=== PATIENT | female | born 1945 | race Caucasian/White ===

== ENCOUNTER 2025-10-10 21:07 | Inpatient (IN) | payer MEDICARE ==
[~2025-10-10] VITALS: Ht 162.6 cm; Wt 111.0 kg
[~2025-10-10 21:07] MED LIST: AMLO-381 PO; CHOL500050 PO; LEVO50TA PO; LOPE2CAP PO; METO-395 PO; SIMV-45 PO; [UNRECOGNIZED DRUG - CODE] PO
--- NOTE | 2025-10-10 21:20 | ELECTROCARDIOGRAPH REPORT ---
[facility] Test Date: 2025-10-10 Test Time: 21:11:35 Pat Name: CATRACHO WHITTAKER Department: EMERGENCY ROOM Room: ORTHO 4022 Gender: F Financial Report Service Sales Agent: MEGHAN : 1945 Requested By: JEAN CARLOS BAZAN Order Number: [id number] Reading MD: Dr. Emerson Ferreira Measurements Intervals [place] Rate: 66 P: 9 IN: 136 QRS: 57 QRSD: 91 T: 0 QT: 435 QTc: 456 Interpretive Statements Sinus rhythm Borderline T abnormalities, inferior leads Baseline wander in lead(s) II,aVR,V1,V5 Electronically Signed On 10-12-2025 21:14:[address] Emerson Ferreira Please click the below link to view image of tracing.
--- NOTE | 2025-10-10 21:46 | Physician Documentation ---
History of Present Illness ~ Chief Complaint: Weakness Stated Complaint: TRANSFER Time Seen by MD: 21:44 OK to notify your PCP?: Yes Source: patient, EMS Mode of Arrival: EMS Exam Limitations: no limitations HPI 80 year old female patient presents to the ED via EMS from [facility] for generalized weakness and ALEXSANDER here for nephrology consult. Patient has left lower extremity cellulitis which she is currently being treated for with no symptomatic improvement. Patient has medical history of atrial fibrillation, arthritis. Negative flu and Covid at [facility]. Medication Reconciliation Allergies: Coded Allergies: No Known Allergies (Unverified , 10/10/25) Scheduled Acetaminophen (Tylenol Extra Strength), 2 TAB PO DAILY, (Reported) Levothyroxine Sodium (Synthroid), 1 TAB PO DAILY, (Reported) Lisinopril (Lisinopril), 2 TAB PO DAILY, (Reported) Metoprolol Succinate (Metoprolol Succinate), 1 TAB PO DAILY, (Reported) Ropinirole Hcl (Ropinirole Hcl), 1 TAB PO HS, (Reported) Simvastatin (Simvastatin), 1 TAB PO HS, (Reported) Spironolactone (Spironolactone), 1 TAB PO DAILY, (Reported) Warfarin Sodium (Warfarin Sodium), 1 TAB PO DAILY, (Reported) Discontinued Medications Amlodipine/Valsartan (Amlodipine-Valsartan 5-320 mg), 1 TAB PO DAILY, (Reported) Discontinued Reason: patient no longer taking Cholecalciferol (Vitamin D3) (Vitamin D3), 1 CAP PO DAILY, (Reported) Discontinued Reason: patient no longer taking Loperamide Hcl (Loperamide), 2 CAP PO HS, (Reported) Discontinued Reason: patient no longer taking Past Medical History Patient History: FH: cancer BROTHER (FROM AG[place]) FH: diabetes mellitus BROTHER FH: myocardial infarction FATHER, Onset:50's - 60 BROTHER Review of Systems All Other Systems at this time: Reviewed and Negative ROS As stated above in the HPI, otherwise all systems are reviewed and negative. Physical Exam Vital Signs: RN Vital Signs have been reviewed: Yes, Temperature: 98.3, Source: Oral, Heart Rate: 66, Respiratory Rate: 16, BP: 97/41, Pulse Oximetry: 94, Weight: 111.000 Oxygen Flow Rate: 0 Pulse Oximetry Reflects: adequate oxygenation Physical Exam General: Patient is awake, alert, oriented x4 in no acute distress. Head: Normocephalic and atraumatic. Eyes: Conjunctival normal. EOMI. PERRL. ENT: Mucous membranes moist. Neck: Supple, trachea is midline. Chest: Clear to auscultation bilaterally without rales, rhonchi, or wheezes. There is no accessory muscle use or retractions. Cardiac: RRR without murmurs, gallops, or rubs. Abd: Soft, nondistended, nontender, with normoactive bowel sounds. No guarding, rebound, or rigidity. Extremities: Cellulitis noted to bilateral lower extremities, left greater than right. Back: No midline spinal or CVA tenderness. Skin: Warm and dry with no significant rash appreciated. Neuro: Cranial nerves II-XII grossly intact. No focal neuro deficits. Progress Progress Note 2152: Paging hospitalist. 2237: Resident hospitalist agrees to admit. Results/Orders Results/Orders Orders - TACO BERNARDO MD Saline Lock (10/10/25 21:18) Culture Blood (10/10/25 21:18) Monitor (10/10/25 21:18) Page Hospitalist (10/10/25 21:52) Fill Out Med Reconciliation (10/10/25 21:52) Completed Orders - TACO BERNARDO MD Cbc/Diff (10/10/25 21:18) CMP (10/10/25 21:18) Procalcitonin (10/10/25 21:18) Lacticsepsis (10/10/25 21:18) Electrocardiogram (10/10/25 21:18) Metoclopramide Inj (Reglan Inj) (10/10/25 21:50) TSH (10/10/25 21:37) Vital Signs 10/10/25 10/10/25 10/10/25 10/10/25 21:27 22:12 22:17 22:47 Temp 98.3 98.3 Pulse 66 63 63 Resp 16 14 17 16 B/P (MAP) 97/41 100/43 (62) 99/49 (66) Pulse Ox 94 97 99 O2 Flow Rate 0 0 Laboratory Tests Test 10/10/25 21:37 White Blood Count 10.9 Red Blood Count 4.29 Hemoglobin 12.3 Hematocrit 37.4 Mean Corpuscular Volume 87.3 Mean Corpuscular Hemoglobin 28.8 Mean Corpuscular Hemoglobin Concent 32.9 L Red Cell Distribution Width 15.1 H Platelet Count 220 Mean Platelet Volume 8.4 Neutrophils (%) (Auto) 81.6 H Lymphocytes (%) (Auto) 9.8 L Monocytes (%) (Auto) 7.2 Eosinophils (%) (Auto) 0.6 Basophils (%) (Auto) 0.8 Neutrophils # (Auto) 8.9 H Lymphocytes # (Auto) 1.1 Monocytes # (Auto) 0.8 Eosinophils # (Auto) 0.1 Basophils # (Auto) 0.1 CBC Comment Sodium Level 136 Potassium Level 4.8 Chloride Level 103 Carbon Dioxide Level 21.1 L Anion Gap 12 Blood Urea Nitrogen 68 H Creatinine 8.27 H Estimated GFR/1.73 m2 5 BUN/Creatinine Ratio 8.2 L Glucose Level 98 Lactic Acid Level 1.0 Calcium Level 8.2 L Total Bilirubin 0.3 Aspartate Amino Transf (AST/SGOT) 17 Alanine Aminotransferase (ALT/SGPT) 11 L Alkaline Phosphatase 36 L Total Protein 5.2 L Albumin 2.4 L Globulin 2.8 Albumin/Globulin Ratio 0.9 L Procalcitonin 0.08 Thyroid Stimulating Hormone (TSH) 5.11 H Chemistry Comments Microbiology Date/Time Source Procedure Growth Status 10/10/25 21:45 Blood Arm Left Blood Culture - Preliminary NEGATIVE (LESS THAN 24 HOURS) Resulted Medical Decision Making Additional information obtaine: old records Findings Patient presents to the emergency room for evaluation of acute kidney injury. Patient transferred for nephrology consultation. Patient noted to be hypotensive with cellulitis however I believe that the hypotension is more of a function of her acute kidney injury while taking blood pressure medicines and not a function of severe sepsis. Patient does have cellulitis however that has mild. She is well-appearing. I do not feel she requires ICU admission. Differential Dx:Considerations: Include: anemia, CVA, dehydration, dysrhythmia, electrolyte imbalance, encephalopathy, Guillain-[place], hypoglycemia, hypotension, hypovolemia, labyrinthitis, Meniere's disease, myasathenia gravis, myocardial infarction, pulmonary embolus, renal failure, respiratory failure, TIA, VBI, vertigo central, vertigo peripheral, vestibular neuronitis, other Departure Disposition: 09 ADMITTED INPATIENT Admitted to Inpatient Unit: yes, to hospitalist Impression: Primary Impression: Acute kidney injury Condition: Guarded Referrals: NO PRIMARY CARE PROVIDER (PCP) Signature Scribe Signature: Scribed for Taco Bernardo MD by Dez Leonard . 10/10/25 23:43 Attestation: The note accurately reflects work and decisions made by me.Taco Bernardo MD 10/11/25 02:36 TACO BERNARDO MD Oct 10, 2025 21:46 DEZ GOMEZ Oct 10, 2025 23:39
[2025-10-10] MEDS ORDERED: metoclopramide 5 mg/ml inj IV ONE (21:50)
[2025-10-10 22:07] LABS: MEAN PLATELET VOLUME 8.4 FL (7.4-10.4); RED CELL DISTRIBUTION WIDTH 15.1 % (11.5-14.5)
[2025-10-10 22:26] LABS: CREATININE 8.27 MG/DL (0.40-0.90); TOTAL CARBON DIOXIDE 21.1 MMOL/L (24-32); eCRCL 5 ML/MIN; eGFR 5 ML/MIN
[2025-10-10] MEDS ORDERED: LISI20TA28 PO (22:26)
[2025-10-10] MEDS ORDERED: ROPI0.5T37 PO (22:26)
[2025-10-10] MEDS ORDERED: SPIR25TA5 PO (22:26)
[2025-10-10] MEDS ORDERED: WARF2.5T82 PO (22:26)
[2025-10-10] MEDS ORDERED: ondansetron/PF 4mg/2ml inj IV PRN (23:20)
[2025-10-10] MEDS ORDERED: potassium Cl 40MEQ/1/2NS 520ml 520 ML IV PRN (23:20)
[2025-10-10] MEDS ORDERED: magnesium sulf-water 4G/100mL 100 ML IV PRN (23:20)
[2025-10-10] MEDS ORDERED: HYDROmorphone/PF 0.2 MG/ML SYRINGE IV PRN (23:20)
[2025-10-10] MEDS ORDERED: magnesium sulf-water 2g/50mL 50 ML IV PRN (23:20)
[2025-10-10] MEDS ORDERED: magnesium Cl slow-release 64mg tablet PO PRN (23:20)
[2025-10-10] MEDS ORDERED: mag hydrox/Alum hydrox/simeth 30ml oral suspension PO PRN (23:20)
[2025-10-10] MEDS ORDERED: magnesium hydroxide 30ml (MOM) UD suspension PO PRN (23:20)
[2025-10-10] MEDS ORDERED: potassium Cl 20 mEq SR tablet PO PRN ×2 (23:20)
[2025-10-10] MEDS ORDERED: ondansetron 4mg rapidly disintigrating tab PO PRN (23:20)
--- NOTE | 2025-10-10 23:43 | HISTORY AND PHYSICAL-Residence ---
History & Physical Providers to Resident Creating Document: NANDO JARRETT, RES ~ History of Present Illness Primary Medical Doctor: Dr. 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 for further evaluation. The patient was initially admitted one week ago for left lower extremity cellulitis and completed a course of trimethoprim-sulfamethoxazole today. A few days ago, she followed up with her primary care physician, where she received a penicillin injection for persistent erythema. Over the past few days, the patient reports generalized weakness, dizziness, fatigue, diffuse lower extremity pain, dry heaves, nausea, and vomiting. She vomited once this morning. She denies chest pain, abdominal pain, fever, or cough. Laboratory results from the outside facility revealed a creatinine of 8 mg/dL. The patient acknowledges having ongoing kidney problems but had not sought medical attention previously. Recently, her primary care physician started her on spironolactone for lower extremity swelling, along with Lasix. She was transferred to our facility for nephrology evaluation. Allergies: Coded Allergies: No Known Allergies (Unverified , 10/10/25) Home Medications Home Medications Active Reported Warfarin Sodium 2.5 Mg Tablet 1 Tab PO DAILY Spironolactone 25 Mg Tablet 1 Tab PO DAILY Ropinirole Hcl 0.5 Mg Tablet 1 Tab PO HS Lisinopril 20 Mg Tablet 2 Tab PO DAILY Tylenol Extra Strength (Acetaminophen) 500 Mg Tablet 2 Tab PO DAILY Simvastatin 40 Mg Tablet 1 Tab PO HS Synthroid (Levothyroxine Sodium) 50 Mcg Tablet 1 Tab PO DAILY Metoprolol Succinate 25 Mg Tab.sr.24h 1 Tab PO DAILY Past Medical History Past Medical History Atrial fibrillation Hypothyroidism DVT Pulmonary embolus Emphysema Past Surgical History Surgical History Comment Hysterectomy Skin transplant Bilateral total hip replacement Shoulder surgery Family History Family History: FH: cancer BROTHER (FROM AG[place]) FH: diabetes mellitus BROTHER FH: myocardial infarction FATHER, Onset:50's - 60 BROTHER Past Social History Social History [facility] Savage but she is not currently following him Patient lives in home alone and able to ambulate in house with the support of her nature and uses walker and sometimes electric scooter Quit smoking in 2023 but previously she used to smoke 1 pack of cigarettes for 55 years With alcohol in 2009 Denies any marijuana or drug use ROS ROS Review of system is negative except that mentioned in HPI Exam Vitals: Vital Signs Date Time Temp Pulse Resp B/P (MAP) Pulse Ox O2 Delivery O2 Flow Rate FiO2 10/10/25 22:47 98.3 63 16 99/49 (66) 99 0 General: Obese body habitus Awake , alert, and oriented x4 HEENT: Atraumatic, normocephalic, EOMI, anicteric sclera ; mild pale conjunctiva Neck: Trachea midline. Supple, full range of motion, no JVD Cardiac: Regular rhythm, regular rate with no murmurs all over the precordium. Respiratory: Equal breath sounds bilaterally, no tachypnea, no wheezing ,rub or rales, Chest wall is symmetric and without deformity. Gastrointestinal: Abdomen symmetric, non-distended, soft, non-tender, normal bowel sounds x4 quadrant, normoactive, no hepatosplenomegaly Neurological: Mental status exam: alert and consciousness, orientation, memory, speech - Cranial nerve test: Cranial nerves 2-12 intact - Motor system: Normal Nutrition, normal tone, Power 4/5, no involuntary movements - Sensory system: Intact - Reflex testing: Biceps, triceps and knee reflexes 2+ - Cerebellar: Normal Skin: Warm and dry Extremities : Bilateral lower extremity cellulitis is present and there is a wound on left lower extremity which is oozing clear fluid and multiple bruises are present on upper extremities Psychiatric:Appropriate mood and affect,No hallucinations or suicidal ideation Diagnostic Data Last Recorded Lab Results: 10/10/25213610/10/252136 Advance Care Planning Advanced Care plannin - 30 Minutes Additional Plan 80 years old female with past medical history of DVT currently evaluated Acute kidney injury likely 2/2 renal tubular stasis Cause under evaluation Patient was recently admitted for cellulitis at other facility where they found out the patient is having very high elevated creatinine of 8 Today patient BUN-68, creatinine 8.27, BUN/creatinine 8.2 Electrolyte-shows normal sodium, normal potassium, bicarb-21.1, ABG-pH 7.38, ABG bicarb event 18.6 Vitals are normal-blood pressure 99/49, started IV 75 cc/hour Follow up with spot urine studies, daily labs Follow up with Renal USG Consulted nephrology Dr. Mathis, awaiting recommendations Left lower extremity cellulitis Patient received one-week course of antibiotic trimethoprim sulfamethoxazole, she is still complaining of lower extremity pain which is associated with redness and oozing wound Started Rocephin 1 g IV daily in view of normal WBC and protocol and poor creatinine clearance Follow up with CT lower extremity without contrast Follow up with wound culture, wound care consulted History of atrial fibrillation Patient takes metoprolol 25 mg and warfarin 2.5 mg daily EKG-shows normal sinus rhythm Currently holding metoprolol in view of soft blood pressure and warfarin in view of supratherapeutic INR History of DVT 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 and initially she was on Eliquis but she recently taking warfarin instead of Eliquis because of cost Currently holding warfarin in view of supratherapeutic INR Patient INR=8 and with no active bleeding so no need of Vitamin K reversal for now, Follow up with INR regularly Hyperlipidemia Patient has a history of hyperlipidemia for which she takes simvastatin 40 mg daily, as it is partially cleared by kidney , decision to start statin depends on nephrology recommendation Hypertension Patient has a history of high blood pressure, for which she takes lisinopril 20 mg Continue patient is maintaining very low blood pressure so we are not continue home med Chronic lower extremity edema Patient takes spironolactone, Lasix for lower extremity edema Hold home med in view of poor kidney function Restless leg syndrome Patient takes ropinirole at home, continue home med Hypothyroidism Patient takes levothyroxine 50 mcg daily at home Follow up with TSH, continue home med Advance care: I spent a total of 16 minutes reviewing various resuscitative measures/ACP with patient. The patient decided to be DNR Code Status: DNR DVT prophylaxis: Patient is currently maintaining supratherapeutic INR, continue DVT prophylax after INR i level decreases Analgesia/Sedation: Dilaudid Line/tube: Peripheral PT: Ordered Prognosis: Guarded Disposition: Patient will be monitored with telemetry in PCU and nephrology was consulted awaiting recommendations, currently holding warfarin in view of supratherapeutic INR, closely monitor vitals Nando Jarrett PGY1-Internal Medicine Resident I saw and discussed this patient with the resident team I agree with assessment and plan as documented Date of Service: Oct 10, 2025 Billing Provider: BOBBY ABEBE MD, SATISH, RES Oct 10, 2025 23:43 BOBBY ABEBE MD Oct 11, 2025 17:38
[2025-10-11] MEDS: CefTRIAXone/D5W-Rocephin 1gm 50 ML IV ONE (00:02)
[2025-10-11 00:16] LABS: ABG BASE EXCESS -5.4 mmol/L (-2.0-3.0); ABG HCO3 18.6 mmol/L (21.0-28.0); ABG OXYGEN SATURATION 94.7 % (94.0-98.0); ABG PCO2 (T) 31.5 mmHg (32.0-45.0); ABG PH (T) 7.388 (7.350-7.450); ABG PO2 (T) 76.2 mmHg (83.0-108.0); ALLEN'S TEST Modified; FCOHb 0.4 % (0.5-1.5); FHHb 5.3 % (0.0-5.0); FIO2 21.0 mmHg/%; FMetHb 0.1 % (0.0-1.5); FO2Hb 94.2 % (94.0-98.0); MODE ROOM AIR; PATIENT TEMPERATURE 36.9; TOTAL HEMOGLOBIN 13.1 G/dl (12.0-16.0)
[2025-10-11 03:24] LABS: MEAN PLATELET VOLUME 8.6 FL (7.4-10.4); RED CELL DISTRIBUTION WIDTH 15.2 % (11.5-14.5)
[2025-10-11 03:30] LABS: CREATININE 8.46 MG/DL (0.40-0.90); TOTAL CARBON DIOXIDE 20.9 MMOL/L (24-32); eCRCL 5 ML/MIN; eGFR 5 ML/MIN
[2025-10-11 03:40] LABS: INR > 8.0 INR
[2025-10-11 04:45] VITALS: BP 100/46; PULSE 67; RESP 18; RESP 20; TEMP 97.1; O2SAT 95
[2025-10-11] MEDS: levoTHYROXINE 25mcg tablet PO SCH (07:03)
[2025-10-11] MEDS: docusate sod 100mg capsule PO SCH (07:03)
[2025-10-11 08:00] VITALS: RESP 20; O2SAT 95
[2025-10-11] MEDS: K and/or MAG REPLACEMENT MC SCH (08:00)
[2025-10-11] MEDS: LidoCAINE 2% Topical Jelly 11mL syringe (UROJET) TOP ONE (08:00)
[2025-10-11] MEDS: normal saline 1000ml 1,000 ML IV SCH (08:42)
[2025-10-11 10:00] VITALS: BP 91/39; PULSE 70; RESP 20; TEMP 97.2; O2SAT 97
[2025-10-11 11:36] VITALS: BP_SYST 122; BP_SYST 91; BP_DIAS 39; BP_DIAS 62; PULSE 70; PULSE 76
[2025-10-11 11:48] LABS: PHOSPHORUS 8.1 MG/DL (2.3-4.5)
--- NOTE | 2025-10-11 11:51 | RADIOLOGY REPORT ---
CHEST RADIOGRAPH INDICATION: CHF TECHNIQUE: Single frontal view of the chest was obtained COMPARISON: XR CHEST 1 VIEW PORTABLE on DOS: 10/10/25, DI CHEST,SINGLE VIEW on DOS: 06/12/25, XR CHEST 1 VIEW AP OR PA on DOS: 06/12/25 FINDINGS: Lines and Tubes: None Lungs: Clear Pleura: No effusion. No pneumothorax. Cardiomediastinal contours: Stable moderate cardiomegaly. Bones: Unremarkable IMPRESSION: 1. Stable moderate cardiomegaly.
[2025-10-11 11:56] LABS: LEUKOCYTE ESTERASE ,URINE NEGATIVE (Neg); NITRITES, URINE NEGATIVE (Neg); OCCULT BLOOD,URINE NEGATIVE (Neg)
[2025-10-11 12:00] LABS: CREATININE,URINE RANDOM 180.0 MG/DL; TOTAL PROTEIN,URINE RANDOM 34.9 MG/DL
[2025-10-11 12:02] LABS: UA COLLECTION TYPE NON-SPECIFIED
[2025-10-11] MEDS: ringers solution, lacted 1,000 ML IV SCH (12:05)
[2025-10-11 12:18] LABS: OSMOLALITY UA 302.0 MOSM/K (50-1400)
--- NOTE | 2025-10-11 12:36 | RADIOLOGY REPORT ---
INDICATION: Bilateral lower extremity cellulitis COMPARISON: None TECHNIQUE: CT of the both lower extremity was performed without contrast. Volume transverse images were obtained and reconstructed in multiple planes using bone and soft tissue algorithms. Radiation Dose Information: CT Dose: CTDI volume is 13.91 mGy. Dose-length product is 1398.51 mGy*cm FINDINGS: Generalized bilateral lower extremity skin thickening and soft tissue edema most pronounced below the knees, right slightly worse than left. No obvious focal fluid collections although assessment is limited without contrast. No soft tissue gas. No erosive bony changes. No fracture or malalignment. Bilateral hip arthroplasties. Visualized pelvic structures are unremarkable apart from a Burleson catheter in-situ. IMPRESSION: Generalized bilateral lower extremity cellulitis without obvious abscess or osteomyelitis. All CT scans at this medical facility are performed using dose modulation techniques as appropriate to a performed exam including the following: Automated exposure control was utilized; adjustment of the MA and/or KV according to patient size; and use of iterative reconstruction technique.
[2025-10-11 13:06] LABS: UA EOSINOPHILS NO EOS /HPF
--- NOTE | 2025-10-11 13:12 | RADIOLOGY REPORT ---
INDICATION: Stage 3 ALEXSANDER TECHNIQUE: Multiple real-time sonographic images of the kidneys and bladder were obtained. COMPARISON: None FINDINGS: RIGHT kidney measures 10 cm in length. No hydronephrosis. Right renal cysts are present measuring up to 1.4 cm. LEFT kidney measures 9.3 cm in length. No hydronephrosis. Mild diffuse bilateral renal cortical atrophy. Burleson catheter in the urinary bladder. IMPRESSION: No hydronephrosis. Mild diffuse bilateral renal cortical atrophy.
--- NOTE | 2025-10-11 13:43 | PROGRESS NOTE ---
Daily Progress Note Providers to CC Please disregard This entry Duplicate Thank you ~ Central Line/PICC still needed: N\A Burleson-Non Protocol Burleson Indications Met/Not Met: F/C Indications Met Antibiotic Timeout Antibiotic Ordered?: Yes MRSA Education MRSA Education Provided to pt: Yes Objective Vital Signs Date Time Temp Pulse Resp B/P (MAP) Pulse Ox O2 Delivery O2 Flow Rate FiO2 10/11/25 11:36 70 91/39 (56) 76 122/62 (82) 10/11/25 10:00 97.2 20 97 Room Air 10/11/25 08:00 0.0 Result Diagram: 10/11/2525610/11/25 025 Coagulation Studies Laboratory Tests Test 10/11/25 02:57 Prothrombin Time 89.9 SECONDS (9.0-12.0) H INR International Normalized Ratio > 8.0 INR *H Coagulation Comments Counseling Services Smoking & Tobacco Cessation: 3-10 Minutes Advance Care Planning Advanced Care plannin - 30 Minutes Problem\Assessment\Plan Care plannin - 30 Minutes Additional Plan 80 years old female with past medical history of DVT currently evaluated Acute kidney injury likely 2/2 renal tubular stasis Cause under evaluation Patient was recently admitted for cellulitis at other facility where they found out the patient is having very high elevated creatinine of 8 Today patient BUN-68, creatinine 8.27, BUN/creatinine 8.2 Electrolyte-shows normal sodium, normal potassium, bicarb-21.1, ABG-pH 7.38, ABG bicarb event 18.6 Vitals are normal-blood pressure 99/49, started IV 75 cc/hour Follow up with spot urine studies, daily labs Follow up with Renal USG Consulted nephrology Dr. Mathis, awaiting recommendations Left lower extremity cellulitis Patient received one-week course of antibiotic trimethoprim sulfamethoxazole, she is still complaining of lower extremity pain which is associated with redness and oozing wound Started Rocephin 1 g IV daily in view of normal WBC and protocol and poor creatinine clearance Follow up with CT lower extremity without contrast Follow up with wound culture, wound care consulted History of atrial fibrillation Patient takes metoprolol 25 mg and warfarin 2.5 mg daily EKG-shows normal sinus rhythm Currently holding metoprolol in view of soft blood pressure and warfarin in view of supratherapeutic INR History of DVT 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 and initially she was on Eliquis but she recently taking warfarin instead of Eliquis because of cost Currently holding warfarin in view of supratherapeutic INR Patient INR=8 and with no active bleeding so no need of Vitamin K reversal for now, Follow up with INR regularly Hyperlipidemia Patient has a history of hyperlipidemia for which she takes simvastatin 40 mg daily, as it is partially cleared by kidney , decision to start statin depends on nephrology recommendation Hypertension Patient has a history of high blood pressure, for which she takes lisinopril 20 mg Continue patient is maintaining very low blood pressure so we are not continue home med Chronic lower extremity edema Patient takes spironolactone, Lasix for lower extremity edema Hold home med in view of poor kidney function Restless leg syndrome Patient takes ropinirole at home, continue home med Hypothyroidism Patient takes levothyroxine 50 mcg daily at home Date of Service: Oct 11, 2025 Billing Provider: BARRERA BLEDSOE MD Common Visit Codes: NOT BILLABLE BARRERA BLEDSOE MD Oct 11, 2025 13:43
--- NOTE | 2025-10-11 14:49 | CONSULTATION REPORT ---
Consult Providers to CC ~ History of Present Illness Primary Medical Doctor: Nando Valenzuela MD Reason for Admit\Complaint: MARYAM History of Present Illness I have been requested to do renal consult on this 80-year-old female with a history of deep vein thrombosis (DVT) and pulmonary embolism from 2022 when she was on Eliquis as verified in [facility] records. She was transferred from [facility] for further evaluation. The patient was initially admitted one week ago for left lower extremity cellulitis and completed a course of trimethoprim-sulfamethoxazole today. A few days ago, she followed up with her primary care physician, where she received a penicillin injection for persistent erythema. Over the past few days, the patient reports generalized weakness, dizziness, fatigue, diffuse lower extremity pain, dry heaves, nausea, and vomiting. She vomited once this morning. She denies chest pain, abdominal pain, fever, or cough. Laboratory results from the outside facility revealed a creatinine of 8.9 mg/dL and a repeat one there after hydration was 8.4. Here it is still at 8.49. The patient acknowledges having ongoing kidney problems and on review, her baseline creatinine was 1.7 to 2 as of May of 2024 and as early as 2018, her serum creatinine 2was 1.3 to 1.4. She had not sought medical attention with slide maker previously due to the distance she has to travel from [facility]. Recently, her primary care physician started her on spironolactone for lower extremity swelling, along with Lasix. Allergies: Coded Allergies: No Known Allergies (Unverified , 10/10/25) Home Medications Home Medications Active Reported Warfarin Sodium 2.5 Mg Tablet 1 Tab PO DAILY Spironolactone 25 Mg Tablet 1 Tab PO DAILY Ropinirole Hcl 0.5 Mg Tablet 1 Tab PO HS Lisinopril 20 Mg Tablet 2 Tab PO DAILY Tylenol Extra Strength (Acetaminophen) 500 Mg Tablet 2 Tab PO DAILY Simvastatin 40 Mg Tablet 1 Tab PO HS Synthroid (Levothyroxine Sodium) 50 Mcg Tablet 1 Tab PO DAILY Metoprolol Succinate 25 Mg Tab.sr.24h 1 Tab PO DAILY Past Medical History Past Medical History Atrial fibrillation Hypothyroidism DVT Pulmonary embolus Emphysema Past Surgical History Surgical History Comment Hysterectomy Skin transplant Bilateral total hip replacement Shoulder surgery Family History Family History: FH: cancer BROTHER (FROM [place]) FH: diabetes mellitus BROTHER FH: myocardial infarction FATHER, Onset:50's - 60 BROTHER Past Social History Social History Comment Primary care physician-[facility] Dispatcher Service Chief-Dr. Savage but she is not currently following him Patient lives in home alone and able to ambulate in house with the support of her nature and uses walker and sometimes electric scooter Quit smoking in 2023 but previously she used to smoke 1 pack of cigarettes for 55 years With alcohol in 2008 Denies any marijuana or drug use ROS ROS feels weak. miserable with the pain in her legs and her overall situation. Exam Vitals: Vital Signs Date Time Temp Pulse Resp B/P (MAP) Pulse Ox O2 Delivery O2 Flow Rate FiO2 10/11/25 11:36 70 91/39 (56) 76 122/62 (82) 10/11/25 10:00 97.2 20 97 Room Air 10/11/25 08:00 0.0 General: Vital Signs: As above, skin turgor overall is poor. General: Obese body habitus, no acute distress. Skin: No rashes, lumps, ulcers, blisters, purpura or petechiae HEENT: Anicteric sclera, GODWIN Neck: Supple and nontender without enlargement of the thyroid, or lymphadenopathy. Chest: Normal size and shape, no tenderness, CTA bilaterally Heart: Regular. No jugular venous distention, S1 and S2 heard , no gallop Abdomen: Soft and non tender no organomegaly,BS+ Extremities: bipitting pedal edema, with one small blister, and erythema. 1+ Neuro: Nonfocal. Diagnostic Data Last Recorded Lab Results: 10/11/25 0257 10/11/25 0257 Diagnostic Data: Laboratory Tests Test 10/11/25 02:57 Prothrombin Time 89.9 SECONDS (9.0-12.0) H INR International Normalized Ratio > 8.0 INR *H Coagulation Comments Problems: (1) Acute kidney injury Status: Acute Assessment & Plan: appears to be pre renal azotemia related MARYAM at this point. David, with her aldactone and recent use of Bactrim, her K is palatable at this time, with her level of Maryam. Her creatinine of 8.4 is possibly due to volume depletion. Her UA doesnt' show nephrotic range proteinuria, and in fact from the past, the [facility] [address] [facility] She does appear septic and dehydrated and will allow fluids to run tonight. will see how the numbers are tomorrow. Renal US showed No hydronephrosis. Mild diffuse bilateral renal cortical atrophy. possible acute interstitial nephritis. No evidence of ATN yet in the urine sample. Check FeNA. every day labs please. decision for dialysis, if the renal function does not get better with hydration in a day or two. From [facility] records, I do see that she was on Meloxicam over there although, her med reconciliation does not reveal that medicine. (2) Pulmonary emboli Assessment & Plan: from 2022. She nancy Warfarin. defer decision to primary about this. Her iNR is very high, greater than 8. hence it is on hold. (3) COPD (chronic obstructive pulmonary disease) Assessment & Plan: heavy smoking history until 2023 and she is getting breathing treatments. SURENDRA UNDERWOOD MD Oct 11, 2025 14:49
[2025-10-11] MEDS: FLU VACC TS2025-26(6MOS UP)/PF (FLULAVAL) 45 MCG/0.5 ML SYRINGE IMVAC ONE (15:28)
[2025-10-11 18:00] VITALS: BP 107/56; PULSE 75; RESP 18; TEMP 97.1; O2SAT 97
--- NOTE | 2025-10-11 19:28 | PROGRESS NOTE ---
Daily Progress Note Providers to CC Feels better today, awaiting Nephrology evaluation ~ Central Line/PICC still needed: No Burleson-Non Protocol Burleson Indications Met/Not Met: F/C Indications Not Met Antibiotic Timeout Antibiotic Ordered?: Yes MRSA Education MRSA Education Provided to pt: Yes Subjective As above Objective Vital Signs Date Time Temp Pulse Resp B/P (MAP) Pulse Ox O2 Delivery O2 Flow Rate FiO2 10/11/25 11:36 70 91/39 (56) 76 122/62 (82) 10/11/25 10:00 97.2 20 97 Room Air 10/11/25 08:00 0.0 Vital signs, stable ,afebrile. Pulse Oximetry reflects adequate oxygenation. General: well developed, well nourished. Awake , alert, and oriented x4, resting comfortably in the bed, in no acute distress . Skin: Warm, dry, no pallor, no rash or petechiae. HEENT: Atraumatic, normocephalic, EOMI, anicteric sclera B; pink conjunctiva; PERRLA, normal oropharynx, moist oral and nasal mucosa. Tympanic membrane , nose , throat clear. Neck: Trachea midline. Supple, full range of motion, no JVD, bruit , hepatojugular reflex , lymphadenopathy or masses, or other lesions Cardiac: Regular rhythm, regular rate no murmurs, rubs, or gallops. Normal S1 and S2, no S3 noticed. PMI is normal. Respiratory: Equal breath sounds bilaterally, no tachypnea; lungs clear to auscultation bilaterally, no wheezing ,rub or rales, or crackles. Chest wall is symmetric and without deformity. No signs of trauma. Chest wall is nontender. No signs of respiratory distress. Resonance is normal upon percussion bilaterally. Gastrointestinal: Abdomen symmetric, non-distended, soft, non-tender, normal bowel sounds x4 quadrant, normoactive, no hepatosplenomegaly , no masses , no bruit, no flank pain bilaterally. No voluntary guarding, rebound, or rigidity. No tenderness to percussion. No pulsatile masses. Equal femoral pulses. No Grove's sign or McBurney point tenderness. Back; no CVA tenderness bilaterally, no deformities. Neck and back are without deformity as well. No tenderness noted on palpation of the spinous processes. Spinous processes are midline. Cervical, thoracic, and lumbar paraspinal muscles are not tender and are without spasm. Musculoskeletal: Extremities, normal range of motion, non-tender, muscle strength 5/5 x 4. Negative Homans signs bilaterally on lower extremity. Distal pulses full symmetrical, no clubbing, cyanosis , edema. Neurological: Speech is clear, alert, and oriented x 4. No motor or sensory deficit, deep tendon reflexes normal, cerebellar intact. Cranial nerves II-XII intact. Psych: Alert and or appropriate, normal affect. Vascular: Good distal pulses, which are equal x4; capillary refill less than 2 seconds. Lymphatic, no lymphadenopathy. Result Diagram: 10/11/2525610/11/25256 Coagulation Studies Laboratory Tests Test 10/11/25 02:57 Prothrombin Time 89.9 SECONDS (9.0-12.0) H INR International Normalized Ratio > 8.0 INR *H Coagulation Comments Problem\Assessment\Plan Assessment/plan Care plannin - 30 Minutes Additional Plan 80 years old female with past medical history of DVT currently evaluated Acute kidney injury likely 2/2 renal tubular stasis Cause under evaluation Patient was recently admitted for cellulitis at other facility where they found out the patient is having very high elevated creatinine of 8 Today patient BUN-68, creatinine 8.27, BUN/creatinine 8.2 Electrolyte-shows normal sodium, normal potassium, bicarb-21.1, ABG-pH 7.38, ABG bicarb event 18.6 Vitals are normal-blood pressure 99/49, started IV 75 cc/hour Follow up with spot urine studies, daily labs Follow up with Renal USG Consulted nephrology Dr. Mathis, awaiting recommendations Left lower extremity cellulitis Patient received one-week course of antibiotic trimethoprim sulfamethoxazole, she is still complaining of lower extremity pain which is associated with redness and oozing wound Started Rocephin 1 g IV daily in view of normal WBC and protocol and poor creatinine clearance Follow up with CT lower extremity without contrast Follow up with wound culture, wound care consulted History of atrial fibrillation Patient takes metoprolol 25 mg and warfarin 2.5 mg daily EKG-shows normal sinus rhythm Currently holding metoprolol in view of soft blood pressure and warfarin in view of supratherapeutic INR History of DVT 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 and initially she was on Eliquis but she recently taking warfarin instead of Eliquis because of cost Currently holding warfarin in view of supratherapeutic INR Patient INR=8 and with no active bleeding so no need of Vitamin K reversal for now, Follow up with INR regularly Hyperlipidemia Patient has a history of hyperlipidemia for which she takes simvastatin 40 mg daily, as it is partially cleared by kidney , decision to start statin depends on nephrology recommendation Hypertension Patient has a history of high blood pressure, for which she takes lisinopril 20 mg Continue patient is maintaining very low blood pressure so we are not continue home med Chronic lower extremity edema Patient takes spironolactone, Lasix for lower extremity edema Hold home med in view of poor kidney function Restless leg syndrome Patient takes ropinirole at home, continue home med Hypothyroidism Patient takes levothyroxine 50 mcg daily at home Date of Service: Oct 11, 2025 Billing Provider: BARRERA BLEDSOE MD Common Visit Codes: [id number] INP/OBS CARE(HIGH) BARRERA BLEDSOE MD Oct 11, 2025 19:28
[2025-10-11 22:00] VITALS: BP 108/39; PULSE 77; RESP 20; TEMP 97.4; O2SAT 93
[2025-10-12 06:00] VITALS: BP 114/47; PULSE 77; RESP 18; TEMP 97.3; O2SAT 95
[2025-10-12 06:04] LABS: MEAN PLATELET VOLUME 8.5 FL (7.4-10.4); RED CELL DISTRIBUTION WIDTH 15.1 % (11.5-14.5)
[2025-10-12 06:32] LABS: CREATININE 7.31 MG/DL (0.40-0.90); INR > 8.0 INR; TOTAL CARBON DIOXIDE 22.1 MMOL/L (24-32); eCRCL 5 ML/MIN; eGFR 5 ML/MIN
[2025-10-12] MEDS: HYDROmorphone inj. 0.5 MG/0.5 ML DISP.SYRIN IV PRN (07:39)
[2025-10-12 10:00] VITALS: BP 95/55; PULSE 71; RESP 16; TEMP 97.5; O2SAT 99
[2025-10-12 10:26] LABS: PHOSPHORUS 6.7 MG/DL (2.3-4.5)
[2025-10-12] MEDS: CefTRIAXone/D5W-Rocephin 1gm 50 ML IV SCH (10:51)
--- NOTE | 2025-10-12 15:50 | PROGRESS NOTE- Residence ---
Progress Note - Resident Providers to CC Resident Creating Document: JATINDER SHANNONTIK, RES ~ Central Line/PICC still needed: No Burleson-Non Protocol Burleson Indications Met/Not Met: F/C Indications Met Antibiotic Timeout Antibiotic Ordered?: Yes Subjective Patient seen and examined at the bedside today. The patient stated that she is feeling a little better but continues to have bilateral lower extremity pain and swelling. Denied any new concerns or complaints. No overnight events were reported. Objective Vital Signs Date Time Temp Pulse Resp B/P (MAP) Pulse Ox O2 Delivery O2 Flow Rate FiO2 10/12/25 07:39 16 10/12/25 07:00 Room Air 10/12/25 06:00 97.3 77 114/47 (69) 95 10/11/25 08:00 0.0 Result Diagram: 10/12/2553710/12/25537 Vital Signs: As above, skin turgor overall is poor. General: Obese body habitus, no acute distress. Skin: No rashes, lumps, ulcers, blisters, purpura or petechiae HEENT: Anicteric sclera, GODWIN Neck: Supple and nontender without enlargement of the thyroid, or lymphadenopathy. Chest: Normal size and shape, no tenderness, CTA bilaterally Heart: Regular. No jugular venous distention, S1 and S2 heard , no gallop Abdomen: Soft and non tender no organomegaly,BS+ Extremities: There is erythema in bilateral lower extremity more on the left when compared to the right lower extremity. One small blister on the left lower extremity. Bilateral lower extremity pitting edema is also present. Left lower extremity very tender to palpate. Neuro: Cranial nerves 2-12 intact. No focal motor or sensory deficits noted. Coagulation Studies Laboratory Tests Test 10/12/25 05:38 Prothrombin Time 81.9 SECONDS (9.0-12.0) H INR International Normalized Ratio > 8.0 INR *H Coagulation Comments Advance Care Planning Advanced Care plannin - 30 Minutes Assessment Assessment 80 years old female with past medical history of DVT, pulmonary embolism, hypothyroidism, emphysema is admitted in the hospital for evaluation and management of bilateral lower extremity cellulitis. The patient was found to have stage III ALEXSANDER and hence the Nephrology team was consulted. Plan Plan ALEXSANDER The most likely cause of the patient's ALEXSANDER is severe dehydration leading to prerenal azotemia. The patient also appears to be septic which contributes to the patient's ALEXSANDER. Renal ultrasound is negative for any hydronephrosis but shows mild diffuse renal cortical atrophy bilaterally. The patient has been receiving 100 cc of LR per hour since yesterday. The patient's renal function started improving and down trending. Her BUN creatinine are 68 and 7.31 today. Urine analysis is negative for any protein, blood and eosinophils. FENA is indeterminate. The patient's renal recovery slow. Continue fluids for hydration and maintenance. Continue monitoring the patient's renal function test closely. Avoid NSAIDS, , arbs and IV contrast which are nephrotoxic. Strict input and output monitoring recommended. Hyperkalemia The patient's potassium is 5.2 today. Repeat BMP in the evening and monitoring the patient's electrolytes closely. Continue fluids for hydration. Recommend renal diet. Bilateral lower extremity cellulitis History of DVTs, PE Supratherapeutic INR Started the patient on IV ceftriaxone 1 g daily. Follow up with the blood cultures. Recommend wound care consultation. Recommend bilateral lower extremity venous Dopplers to rule out DVTs. Patient is on warfarin at home. Currently has a supratherapeutic INR of greater than eight. There is no signs of bleeding. Patient's warfarin is on hold. Gave the patient one time dose of p.o. vitamin K. Monitor the patient's INR. Please continue management per the hospitalist physician. Emphysema COPD Does not appear to be in exacerbation. Continue management as per the hospitalist team. CODE STATUS: DNR Diet: Renal diet Disposition: Continue close monitoring of the patient's renal function. Continue management in the hospital. Jatinder Shannon MD Internal Medicine Resident, PGY-3 Nephrology Attending: Patient seen and examined. Care plan reviewed with resident. agree with above. will continue to give her iv fluids today. creaitnine is down to 7.4. Will give 2-3 days to see if the trend continues every day. Ran Underwood MD Date of Service: Oct 12, 2025 Billing Provider: RAN UNDERWOOD MD,JATINDER BARRIOS, RES Oct 12, 2025 15:50 RAN UNDERWOOD MD Oct 12, 2025 17:54
[2025-10-12 18:00] VITALS: BP 133/59; PULSE 74; RESP 16; TEMP 97.5; O2SAT 97
[2025-10-12 18:11] LABS: CREATININE 6.43 MG/DL (0.40-0.90); TOTAL CARBON DIOXIDE 23.6 MMOL/L (24-32); eCRCL 6 ML/MIN; eGFR 6 ML/MIN
--- NOTE | 2025-10-12 18:38 | PROGRESS NOTE ---
Daily Progress Note Providers to CC Today, resting comfortably in the bed ~ Central Line/PICC still needed: No Burleson-Non Protocol Burleson Indications Met/Not Met: F/C Indications Not Met Antibiotic Timeout Antibiotic Ordered?: Yes MRSA Education MRSA Education Provided to pt: Yes Subjective As above Objective Vital Signs Date Time Temp Pulse Resp B/P (MAP) Pulse Ox O2 Delivery O2 Flow Rate FiO2 10/12/25 07:39 16 10/12/25 07:00 Room Air 10/12/25 06:00 97.3 77 114/47 (69) 95 10/11/25 08:00 0.0 Vital signs, stable ,afebrile. Pulse Oximetry reflects adequate oxygenation. B General: well developed, well nourished. Awake , alert, and oriented x4, resting comfortably in the bed, in no acute distress . Skin: Warm, dry, no pallor, no rash or petechiae. HEENT: Atraumatic, normocephalic, EOMI, anicteric sclera B; pink conjunctiva; PERRLA, normal oropharynx, moist oral and nasal mucosa. Tympanic membrane , nose , throat clear. Neck: Trachea midline. Supple, full range of motion, no JVD, bruit , hepatojugular reflex , lymphadenopathy or masses, or other lesions Cardiac: Regular rhythm, regular rate no murmurs, rubs, or gallops. Normal S1 and S2, no S3 noticed. PMI is normal. Respiratory: Equal breath sounds bilaterally, no tachypnea; lungs clear to auscultation bilaterally, no wheezing ,rub or rales, or crackles. Chest wall is symmetric and without deformity. No signs of trauma. Chest wall is nontender. No signs of respiratory distress. Resonance is normal upon percussion bilaterally. Gastrointestinal: Abdomen symmetric, non-distended, soft, non-tender, normal bowel sounds x4 quadrant, normoactive, no hepatosplenomegaly , no masses , no bruit, no flank pain bilaterally. No voluntary guarding, rebound, or rigidity. No tenderness to percussion. No pulsatile masses. Equal femoral pulses. No Grove's sign or McBurney point tenderness. Back; no CVA tenderness bilaterally, no deformities. Neck and back are without deformity as well. No tenderness noted on palpation of the spinous processes. Spinous processes are midline. Cervical, thoracic, and lumbar paraspinal muscles are not tender and are without spasm. Musculoskeletal: Extremities, normal range of motion, non-tender, muscle strength 5/5 x 4. Negative Homans signs bilaterally on lower extremity. Distal pulses full symmetrical, no clubbing, cyanosis , edema. Neurological: Speech is clear, alert, and oriented x 4. No motor or sensory deficit, deep tendon reflexes normal, cerebellar intact. Cranial nerves II-XII intact. Psych: Alert and or appropriate, normal affect. Vascular: Good distal pulses, which are equal x4; capillary refill less than 2 seconds. Lymphatic, no lymphadenopathy. Result Diagram: 10/12/25 0538 10/12/25 1747 Coagulation Studies Laboratory Tests Test 10/12/25 05:38 Prothrombin Time 81.9 SECONDS (9.0-12.0) H INR International Normalized Ratio > 8.0 INR *H Coagulation Comments Problem\Assessment\Plan Assessment/plan Care plannin - 30 Minutes Additional Plan 80 years old female with past medical history of DVT currently evaluated Acute kidney injury likely 2/2 renal tubular stasis Cause under evaluation Patient was recently admitted for cellulitis at other facility where they found out the patient is having very high elevated creatinine of 8 Today patient BUN-68, creatinine 8.27, BUN/creatinine 8.2 Electrolyte-shows normal sodium, normal potassium, bicarb-21.1, ABG-pH 7.38, ABG bicarb event 18.6 Vitals are normal-blood pressure 99/49, started IV 75 cc/hour Follow up with spot urine studies, daily labs Follow up with Renal USG Consulted nephrology Dr. Mathis, awaiting recommendations Left lower extremity cellulitis Patient received one-week course of antibiotic trimethoprim sulfamethoxazole, she is still complaining of lower extremity pain which is associated with redness and oozing wound Started Rocephin 1 g IV daily in view of normal WBC and protocol and poor creatinine clearance Follow up with CT lower extremity without contrast Follow up with wound culture, wound care consulted History of atrial fibrillation Patient takes metoprolol 25 mg and warfarin 2.5 mg daily EKG-shows normal sinus rhythm Currently holding metoprolol in view of soft blood pressure and warfarin in view of supratherapeutic INR vitamin K, was given History of DVT 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 and initially she was on Eliquis but she recently taking warfarin instead of Eliquis because of cost Currently holding warfarin in view of supratherapeutic INR Patient INR=8 and with no active bleeding so no need of Vitamin K reversal for now, Follow up with INR regularly Hyperlipidemia Patient has a history of hyperlipidemia for which she takes simvastatin 40 mg daily, as it is partially cleared by kidney , decision to start statin depends on nephrology recommendation Hypertension Patient has a history of high blood pressure, for which she takes lisinopril 20 mg Continue patient is maintaining very low blood pressure so we are not continue home med Chronic lower extremity edema Patient takes spironolactone, Lasix for lower extremity edema Hold home med in view of poor kidney function Restless leg syndrome Patient takes ropinirole at home, continue home med Hypothyroidism Patient takes levothyroxine 50 mcg daily at home Date of Service: Oct 12, 2025 Billing Provider: BARRERA BLEDSOE MD Common Visit Codes: [id number] INP/OBS CARE(HIGH) BARRERA BLEDSOE MD Oct 12, 2025 18:38
[2025-10-12 20:00] VITALS: BP_SYST 106; BP_SYST 122; BP_DIAS 40; BP_DIAS 51; PULSE 78; PULSE 80; RESP 16; O2SAT 97
[2025-10-12 22:00] VITALS: BP 106/40; PULSE 78; RESP 14; TEMP 96.8; O2SAT 93
[2025-10-13 04:48] LABS: INR 1.7 INR
[2025-10-13 04:49] LABS: MEAN PLATELET VOLUME 8.3 FL (7.4-10.4); RED CELL DISTRIBUTION WIDTH 15.0 % (11.5-14.5)
[2025-10-13 04:59] LABS: CREATININE 6.12 MG/DL (0.40-0.90); TOTAL CARBON DIOXIDE 20.6 MMOL/L (24-32); eCRCL 6 ML/MIN; eGFR 7 ML/MIN
[2025-10-13] MEDS: HYDROcodone/acetaminophen 10/325mg tab PO PRN (05:00)
[2025-10-13 06:00] VITALS: BP 118/52; PULSE 80; RESP 16; TEMP 96.4; O2SAT 95
[2025-10-13 10:00] VITALS: BP 115/49; PULSE 81; RESP 16; TEMP 98.1; O2SAT 95
--- NOTE | 2025-10-13 15:54 | PROGRESS NOTE ---
Progress Note Dictate Providers to CC ~ Central Line/PICC still needed: No Burleson Indications Met/Not Met: F/C Indications Met Antibiotic Ordered?: N/A Subjective Subjective the pateint is sleeping comfortably during rounds. creatinien continues to drop. K is rising and bicarb is dropping to 20. Objective Vitals Vital Signs Date Time Temp Pulse Resp B/P (MAP) Pulse Ox O2 Delivery O2 Flow Rate FiO2 10/13/25 10:00 98.1 81 16 115/49 (71) 95 Room Air 10/12/25 20:00 0.0 Lab Results: 10/13/25 0416 10/13/25 0406 Objective Vital Signs: As above General: obese body habitus, no acute distress. Skin: No rashes, lumps, ulcers, blisters, purpura or petechiae HEENT: Anicteric Neck: Supple and nontender without enlargement of the thyroid, or lymphadenopathy. Chest: Normal size and shape, no tenderness, CTA bilaterally Heart: Regular. No jugular venous distention, S1 and S2 heard , no gallop Abdomen: Soft and non tender no organomegaly,BS+ Extremities: = pedal edema Neuro: Nonfocal. Coagulation Studies Laboratory Tests Test 10/13/25 04:06 Prothrombin Time 16.8 SECONDS (9.0-12.0) H INR International Normalized Ratio 1.7 INR # Coagulation Comments Advance Care Planning Advanced Care plannin - 30 Minutes Problem\Assessment\Plan Problems/Diagnosis: (1) Acute kidney injury Assessment & Plan: appears to be pre renal azotemia related MARYAM at this point. David, with her aldactone and recent use of Bactrim, her K is palatable at this time, with her level of Maryam. Her creatinine of 8.4 is possibly due to volume depletion. Her UA doesnt' show nephrotic range proteinuria, and in fact from the past, the u microalbumin to creatinine ratio was less than [address] [facility]. She does appear septic and dehydrated and will allow fluids to run tonight. will see how the numbers are tomorrow. Renal US showed No hydronephrosis. Mild diffuse bilateral renal cortical atrophy. possible acute interstitial nephritis. No evidence of ATN yet in the urine sample. Check FeNA. every day labs please. decision for dialysis, if the renal function does not get better with hydration in a day or two. From [facility] records, I do see that she was on Meloxicam over there although, her med reconciliation does not reveal that medicine. creatinien continues to drop. (2) Pulmonary emboli Assessment & Plan: from 2022. She nancy Warfarin. defer decision to primary about this. Her iNR was very high, greater than 8. hence it iwas on hold. now it is 1.7. restart warfarin. (3) COPD (chronic obstructive pulmonary disease) Assessment & Plan: heavy smoking history until 2023 and she is getting breathing treatments. SURENDRA UNDERWOOD MD Oct 13, 2025 15:54
[2025-10-13] MEDS: sodium bicarbonate 1meq/ml inj 150 ML in dextrose 5%-water 1,000 ML IV SCH (17:53)
[2025-10-13 18:00] VITALS: BP 123/51; PULSE 86; RESP 16; TEMP 98.4; O2SAT 97
--- NOTE | 2025-10-13 18:49 | PROGRESS NOTE ---
Daily Progress Note Providers to CC Today tolerates medication fine good appetite good sleep ~ Central Line/PICC still needed: No Burleson-Non Protocol Bur[place]on Indications Met/Not Met: F/C Indications Not Met Antibiotic Timeout Antibiotic Ordered?: Yes MRSA Education MRSA Education Provided to pt: Yes Subjective As above Objective Vital Signs Date Time Temp Pulse Resp B/P (MAP) Pulse Ox O2 Delivery O2 Flow Rate FiO2 10/13/25 10:00 98.1 81 16 115/49 (71) 95 Room Air 10/12/25 20:00 0.0 Vital signs, stable ,afebrile. Pulse Oximetry reflects adequate oxygenation. General: well developed, well nourished. Awake , alert, and oriented x4, resting comfortably in the bed, in no acute distress . Skin: Warm, dry, no pallor, no rash or petechiae. HEENT: Atraumatic, normocephalic, EOMI, anicteric sclera B; pink conjunctiva; PERRLA, normal oropharynx, moist oral and nasal mucosa. Tympanic membrane , nose , throat clear. Neck: Trachea midline. Supple, full range of motion, no JVD, bruit , hepatojugular reflex , lymphadenopathy or masses, or other lesions Cardiac: Regular rhythm, regular rate no murmurs, rubs, or gallops. Normal S1 and S2, no S3 noticed. PMI is normal. Respiratory: Equal breath sounds bilaterally, no tachypnea; lungs clear to auscultation bilaterally, no wheezing ,rub or rales, or crackles. Chest wall is symmetric and without deformity. No signs of trauma. Chest wall is nontender. No signs of respiratory distress. Resonance is normal upon percussion bilaterally. Gastrointestinal: Abdomen symmetric, non-distended, soft, non-tender, normal bowel sounds x4 quadrant, normoactive, no hepatosplenomegaly , no masses , no bruit, no flank pain bilaterally. No voluntary guarding, rebound, or rigidity. No tenderness to percussion. No pulsatile masses. Equal femoral pulses. No Grove's sign or McBurney point tenderness. Back; no CVA tenderness bilaterally, no deformities. Neck and back are without deformity as well. No tenderness noted on palpation of the spinous processes. Spinous processes are midline. Cervical, thoracic, and lumbar paraspinal muscles are not tender and are without spasm. Musculoskeletal: Extremities, normal range of motion, non-tender, muscle strength 5/5 x 4. Negative Homans signs bilaterally on lower extremity. Distal pulses full symmetrical, no clubbing, cyanosis , edema. Neurological: Speech is clear, alert, and oriented x 4. No motor or sensory deficit, deep tendon reflexes normal, cerebellar intact. Cranial nerves II-XII intact. Psych: Alert and or appropriate, normal affect. Vascular: Good distal pulses, which are equal x4; capillary refill less than 2 seconds. Lymphatic, no lymphadenopathy. Result Diagram: 10/13/25 0416 10/13/25 0406 Coagulation Studies Laboratory Tests Test 10/13/25 04:06 Prothrombin Time 16.8 SECONDS (9.0-12.0) H INR International Normalized Ratio 1.7 INR # Coagulation Comments Problem\Assessment\Plan Assessment/plan Care plannin - 30 Minutes Additional Plan 80 years old female with past medical history of DVT currently evaluated Acute kidney injury likely 2/2 renal tubular stasis Cause under evaluation Patient was recently admitted for cellulitis at other facility where they found out the patient is having very high elevated creatinine of 8 Today patient BUN-68, creatinine 8.27, BUN/creatinine 8.2 Electrolyte-shows normal sodium, normal potassium, bicarb-21.1, ABG-pH 7.38, ABG bicarb event 18.6 Vitals are normal-blood pressure 99/49, started IV 75 cc/hour Follow up with spot urine studies, daily labs Follow up with Renal [facility] Consulted nephrology Dr. Mathis, awaiting recommendations Left lower extremity cellulitis Patient received one-week course of antibiotic trimethoprim sulfamethoxazole, she is still complaining of lower extremity pain which is associated with redness and oozing wound Started Rocephin 1 g IV daily in view of normal WBC and protocol and poor creatinine clearance Follow up with CT lower extremity without contrast Follow up with wound culture, wound care consulted History of atrial fibrillation Patient takes metoprolol 25 mg and warfarin 2.5 mg daily EKG-shows normal sinus rhythm Currently holding metoprolol in view of soft blood pressure and warfarin in view of supratherapeutic INR vitamin K, was given, INR on 1.6 now History of DVT 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 and initially she was on Eliquis but she recently taking warfarin instead of Eliquis because of cost Currently holding warfarin in view of supratherapeutic INR Patient INR=8 and with no active bleeding so no need of Vitamin K reversal for now, Follow up with INR regularly Hyperlipidemia Patient has a history of hyperlipidemia for which she takes simvastatin 40 mg daily, as it is partially cleared by kidney , decision to start statin depends on nephrology recommendation Hypertension Patient has a history of high blood pressure, for which she takes lisinopril 20 mg Continue patient is maintaining very low blood pressure so we are not continue home med Chronic lower extremity edema Patient takes spironolactone, Lasix for lower extremity edema Hold home med in view of poor kidney function Restless leg syndrome Patient takes ropinirole at home, continue home med Hypothyroidism Patient takes levothyroxine 50 mcg daily at home Date of Service: Oct 13, 2025 Billing Provider: BARRERA BLEDSOE MD Common Visit Codes: [id number] INP/OBS CARE(HIGH) BARRERA BLEDSOE MD Oct 13, 2025 18:49
[2025-10-13] MEDS: warfarin 2.5mg tablet PO ONE (20:55)
[2025-10-13 22:00] VITALS: BP 151/62; PULSE 85; RESP 16; TEMP 98.2; O2SAT 97
[2025-10-14] VITALS (7 sets, daily range): BP systolic 109–167; BP diastolic 55–85; PULSE 80–105; RESP 14–20; TEMP 97.9–98.3; O2SAT 91–95
[2025-10-14 05:54] LABS: MEAN PLATELET VOLUME 8.0 FL (7.4-10.4); RED CELL DISTRIBUTION WIDTH 15.1 % (11.5-14.5)
[2025-10-14 06:11] LABS: CREATININE 4.66 MG/DL (0.40-0.90); TOTAL CARBON DIOXIDE 25.5 MMOL/L (24-32); eCRCL 8 ML/MIN; eGFR 9 ML/MIN
[2025-10-14 09:01] LABS: INR 1.2 INR
--- NOTE | 2025-10-14 10:12 | PROGRESS NOTE ---
Progress Note Dictate Providers to CC ~ Central Line/PICC still needed: No [place] Indications Met/Not Met: F/C Indications Met Antibiotic Ordered?: Yes Subjective Subjective The patient is continuing to have good urine flow and is on iv fluids. She has cellulitis involving her left leg. She has Maryam and her baselien cretinine is about 1.7-2. She is getting better with creatinine of 4.6 today. But unfortuntely, clinically she feels worse with wheezing, and is starting to get fluid overloaded. Objective Vitals Vital Signs Date Time Temp Pulse Resp B/P (MAP) Pulse Ox O2 Delivery O2 Flow Rate FiO2 10/14/25 10:47 105 126/85 (99) 10/14/25 10:00 97.9 16 93 Room Air 10/14/25 08:27 0.0 Lab Results: 10/14/25 0442 10/14/25 0442 Objective Vital Signs: As above General: obese body habitus, no acute distress. Skin: No rashes, lumps, ulcers, blisters, purpura or petechiae HEENT: Anicteric Neck: Supple and nontender without enlargement of the thyroid, or lymphadenopathy. Chest: Normal size and shape, no tenderness, CTA bilaterally Heart: Regular. No jugular venous distention, S1 and S2 heard , no gallop Abdomen: Soft and non tender no organomegaly,BS+ Extremities: = pedal edema Neuro: Nonfocal. Coagulation Studies Laboratory Tests Test 10/14/25 08:44 Prothrombin Time 12.3 SECONDS (9.0-12.0) H INR International Normalized Ratio 1.2 INR Coagulation Comments Advance Care Planning Advanced Care plannin - 30 Minutes Problem\Assessment\Plan Problems/Diagnosis: (1) Acute kidney injury Assessment & Plan: Today she is starting to get overloaded. Her edema is weeping in her legs. She is sarting to feel the wheezes. I shall stop the iv fluids and start her on lasix round the clock at this point. If hte creatinine starts rising from tomorrow, and if the urine output is not impressive, she would still head towards dialysis. She is CLEARLY NOT ready to be discharged to any rehab at this time. (2) Pulmonary emboli Assessment & Plan: from 2022. She nancy Warfarin. defer decision to primary about this. Her iNR was very high, greater than 8. hence it iwas on hold. now it is 1.7. restart warfarin. (3) COPD (chronic obstructive pulmonary disease) Assessment & Plan: heavy smoking history until 2023 and she is getting breathing treatments. SURENDRA UNDERWOOD MD Oct 14, 2025 10:12
--- NOTE | 2025-10-14 11:40 | RADIOLOGY REPORT ---
CHEST RADIOGRAPH Indication: shortness ofbreath. rule out pleural efusion/ CHf Technique: Single frontal view of the chest was obtained COMPARISON: DI CHEST,SINGLE VIEW on DOS: 10/11/25, XR CHEST 1 VIEW PORTABLE on DOS: 10/10/25, DI CHEST,SINGLE VIEW on DOS: 06/12/25, XR CHEST 1 VIEW AP OR PA on DOS: 06/12/25 FINDINGS: Lines and Tubes: None Lungs: Increased interstital prominence. This may represent pulmonary vascular congestion and/or viral pneumonia. Pleura: No effusion.No pneumothorax. Cardiomediastinal contours: Cardiomegaly. Bones: Unremarkable IMPRESSION: Cardiomegaly. Increased interstital prominence. This may represent pulmonary vascular congestion and/or viral pneumonia.
--- NOTE | 2025-10-14 17:52 | PROGRESS NOTE ---
Daily Progress Note Providers to CC No new complaint today, resting comfortably in the bed ~ Central Line/PICC still needed: No Burleson-Non Protocol Burleson Indications Met/Not Met: F/C Indications Not Met Antibiotic Timeout Antibiotic Ordered?: Yes MRSA Education MRSA Education Provided to pt: Yes Subjective As above Objective Vital Signs Date Time Temp Pulse Resp B/P (MAP) Pulse Ox O2 Delivery O2 Flow Rate FiO2 10/14/25 10:47 105 126/85 (99) 10/14/25 10:00 97.9 16 93 Room Air 10/14/25 08:27 0.0 Vital signs, stable ,afebrile. Pulse Oximetry reflects adequate oxygenation. General: well developed, well nourished. Awake , alert, and oriented x4, resting comfortably in the bed, in no acute distress . Skin: Warm, dry, no pallor, no rash or petechiae. HEENT: Atraumatic, normocephalic, EOMI, anicteric sclera B; pink conjunctiva; PERRLA, normal oropharynx, moist oral and nasal mucosa. Tympanic membrane , nose , throat clear. Neck: Trachea midline. Supple, full range of motion, no JVD, bruit , hepatojugular reflex , lymphadenopathy or masses, or other lesions Cardiac: Regular rhythm, regular rate no murmurs, rubs, or gallops. Normal S1 and S2, no S3 noticed. PMI is normal. Respiratory: Equal breath sounds bilaterally, no tachypnea; lungs clear to auscultation bilaterally, no wheezing ,rub or rales, or crackles. Chest wall is symmetric and without deformity. No signs of trauma. Chest wall is nontender. No signs of respiratory distress. Resonance is normal upon percussion bilaterally. Gastrointestinal: Abdomen symmetric, non-distended, soft, non-tender, normal bowel sounds x4 quadrant, normoactive, no hepatosplenomegaly , no masses , no bruit, no flank pain bilaterally. No voluntary guarding, rebound, or rigidity. No tenderness to percussion. No pulsatile masses. Equal femoral pulses. No Grove's sign or McBurney point tenderness. Back; no CVA tenderness bilaterally, no deformities. Neck and back are without deformity as well. No tenderness noted on palpation of the spinous processes. Spinous processes are midline. Cervical, thoracic, and lumbar paraspinal muscles are not tender and are without spasm. Musculoskeletal: Extremities, normal range of motion, non-tender, muscle strength 5/5 x 4. Negative Homans signs bilaterally on lower extremity. Distal pulses full symmetrical, no clubbing, cyanosis , edema. Neurological: Speech is clear, alert, and oriented x 4. No motor or sensory deficit, deep tendon reflexes normal, cerebellar intact. Cranial nerves II-XII intact. Psych: Alert and or appropriate, normal affect. Vascular: Good distal pulses, which are equal x4; capillary refill less than 2 seconds. Lymphatic, no lymphadenopathy. Result Diagram: 10/14/25 0442 10/14/25 0442 Coagulation Studies Laboratory Tests Test 10/14/25 08:44 Prothrombin Time 12.3 SECONDS (9.0-12.0) H INR International Normalized Ratio 1.2 INR Coagulation Comments Problem\Assessment\Plan Assessment/plan Care plannin - 30 Minutes Additional Plan 80 years old female with past medical history of DVT currently evaluated Acute kidney injury likely 2/2 renal tubular stasis Cause under evaluation Patient was recently admitted for cellulitis at other facility where they found out the patient is having very high elevated creatinine of 8 Today patient BUN-68, creatinine 8.27, BUN/creatinine 8.2 Electrolyte-shows normal sodium, normal potassium, bicarb-21.1, ABG-pH 7.38, ABG bicarb event 18.6 Vitals are normal-blood pressure 99/49, started IV 75 cc/hour Follow up with spot urine studies, daily labs Follow up with [facility] Consulted nephrology Dr. Mathis, awaiting recommendations Left lower extremity cellulitis Patient received one-week course of antibiotic trimethoprim sulfamethoxazole, she is still complaining of lower extremity pain which is associated with redness and oozing wound Started Rocephin 1 g IV daily in view of normal WBC and protocol and poor creatinine clearance Follow up with CT lower extremity without contrast Follow up with wound culture, wound care consulted History of atrial fibrillation Patient takes metoprolol 25 mg and warfarin 2.5 mg daily EKG-shows normal sinus rhythm Currently holding metoprolol in view of soft blood pressure and warfarin in view of supratherapeutic INR vitamin K, was given, INR on 1.6 now History of DVT 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 and initially she was on Eliquis but she recently taking warfarin instead of Eliquis because of cost Currently holding warfarin in view of supratherapeutic INR Patient INR=8 and with no active bleeding so no need of Vitamin K reversal for now, Follow up with INR regularly Hyperlipidemia Patient has a history of hyperlipidemia for which she takes simvastatin 40 mg daily, as it is partially cleared by kidney , decision to start statin depends on nephrology recommendation Hypertension Patient has a history of high blood pressure, for which she takes lisinopril 20 mg Continue patient is maintaining very low blood pressure so we are not continue home med Chronic lower extremity edema Patient takes spironolactone, Lasix for lower extremity edema Hold home med in view of poor kidney function Restless leg syndrome Patient takes ropinirole at home, continue home med Hypothyroidism Patient takes levothyroxine 50 mcg daily at home Date of Service: Oct 14, 2025 Billing Provider: BARRERA BLEDSOE MD Common Visit Codes: [id number] INP/OBS CARE(HIGH) BARRERA BLEDSOE MD Oct 14, 2025 17:52
[2025-10-15 05:00] VITALS: BP 125/66; PULSE 89; RESP 18; TEMP 98.1; O2SAT 94
[2025-10-15 06:00] VITALS: BP 125/66; PULSE 89; RESP 18; TEMP 98.1; O2SAT 94
[2025-10-15 07:13] LABS: MEAN PLATELET VOLUME 7.7 FL (7.4-10.4); RED CELL DISTRIBUTION WIDTH 14.8 % (11.5-14.5)
[2025-10-15 07:14] LABS: INR 1.3 INR
--- NOTE | 2025-10-15 07:19 | PROGRESS NOTE ---
Progress Note Dictate Providers to CC ~ Central Line/PICC still needed: No [place]on Indications Met/Not Met: F/C Indications Met Antibiotic Ordered?: N/A Subjective Subjective continues to respond to the lasix that I started yesterday for flui overload. Negative fluid balance today. creatinine got better at 3.7. Needs to lose some more fluids from the leg edema. Objective Vitals Vital Signs Date Time Temp Pulse Resp B/P (MAP) Pulse Ox O2 Delivery O2 Flow Rate FiO2 10/15/25 11:50 16 10/15/25 10:00 98.5 77 115/54 (74) 97 Room Air 10/14/25 20:00 0.0 Lab Results: 10/15/25 0634 10/15/25 0634 Objective Vital Signs: As above General: obese body habitus, no acute distress. Skin: No rashes, lumps, ulcers, blisters, purpura or petechiae HEENT: Anicteric Neck: Supple and nontender without enlargement of the thyroid, or lymphadenopathy. Chest: Normal size and shape, no tenderness, CTA bilaterally Heart: Regular. No jugular venous distention, S1 and S2 heard , no gallop Abdomen: Soft and non tender no organomegaly,BS+ Extremities: = pedal edema Neuro: Nonfocal. Coagulation Studies Laboratory Tests Test 10/15/25 06:34 Prothrombin Time 13.0 SECONDS (9.0-12.0) H INR International Normalized Ratio 1.3 INR Coagulation Comments Advance Care Planning Advanced Care plannin - 30 Minutes Problem\Assessment\Plan Problems/Diagnosis: (1) Acute kidney injury Assessment & Plan: weeping edema of the legs better. will continue lasix today. no iv fluids. creaitnine is down to 3.7 (2) Pulmonary emboli Assessment & Plan: from 2022. She nancy Warfarin. defer decision to primary about this. Her iNR was very high, greater than 8. hence it iwas on hold. now it is 1.7. restarted warfarin yesterday (3) COPD (chronic obstructive pulmonary disease) Assessment & Plan: heavy smoking history until 2023 and she is getting breathing treatments. SURENDRA UNDERWOOD MD Oct 15, 2025 07:19
[2025-10-15 07:23] LABS: CREATININE 3.76 MG/DL (0.40-0.90); TOTAL CARBON DIOXIDE 27.0 MMOL/L (24-32); eCRCL 10 ML/MIN; eGFR 12 ML/MIN
[2025-10-15 08:00] VITALS: BP_SYST 138; BP_SYST 148; BP_SYST 151; BP_DIAS 63; BP_DIAS 85; BP_DIAS 90; PULSE 86; PULSE 87; PULSE 97; RESP 18; O2SAT 94
[2025-10-15 09:07] LABS: PRO BRAIN NATRIURETIC PEPTIDE 3865 PG/ML (0-450)
[2025-10-15 10:00] VITALS: BP 115/54; PULSE 77; RESP 16; TEMP 98.5; O2SAT 97
--- NOTE | 2025-10-15 15:11 | PROGRESS NOTE ---
Daily Progress Note Providers to CC ~ Antibiotic Timeout Antibiotic Ordered?: No Subjective Patient remains weak; pain bilateral lower extremity Objective Vital Signs Date Time Temp Pulse Resp B/P (MAP) Pulse Ox O2 Delivery O2 Flow Rate FiO2 10/15/25 11:50 16 10/15/25 10:00 98.5 77 115/54 (74) 97 Room Air 10/14/25 20:00 0.0 Result Diagram: 10/15/25 0634 10/15/25 0634 In bed in nonacute distress HEENT normal oral mucosa no JVD Lungs with decreased bilateral entry Heart normal rate and rhythm S1-S2 Soft nontender bowel sounds present Extremities plus one edema Awake and alert Coagulation Studies Laboratory Tests Test 10/15/25 06:34 Prothrombin Time 13.0 SECONDS (9.0-12.0) H INR International Normalized Ratio 1.3 INR Coagulation Comments Problem\Assessment\Plan Acute kidney injury likely 2/2 renal tubular stasis Creatinine improving, nephrology following, continue IV Lasix Left lower extremity cellulitis Switch to Ancef Follow up with wound culture, wound care consulted History of atrial fibrillation Patient takes metoprolol 25 mg and warfarin 2.5 mg daily at home History of DVT 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 and initially she was on Eliquis but she recently taking warfarin instead of Eliquis because of cost; INR is 1.3; pharmacy to dose Hyperlipidemia Patient has a history of hyperlipidemia for which she takes simvastatin 40 mg daily, as it is partially cleared by kidney , decision to start statin depends on nephrology recommendation Hypertension Patient has a history of high blood pressure, for which she takes lisinopril 20 mg Continue patient is maintaining very low blood pressure so we are not continue home med Chronic lower extremity edema Patient takes spironolactone, Lasix for lower extremity edema Hold home med in view of poor kidney function Restless leg syndrome Patient takes ropinirole at home, continue home med Hypothyroidism Patient takes levothyroxine 50 mcg daily at home PT eval Date of Service: Oct 15, 2025 Billing Provider: LILLIAN STERN MD Common Visit Codes: [id number] INP/OBS CARE(HIGH) LILLIAN STERN MD Oct 15, 2025 15:11
[2025-10-15] MEDS: Nepro carb steady vanilla 8oz. PO SCH (17:30)
[2025-10-15 18:00] VITALS: BP 141/76; PULSE 87; RESP 16; TEMP 98.2; O2SAT 96
[2025-10-15] MEDS: warfarin 3mg tablet PO ONE (20:43)
[2025-10-15] MEDS: ceFAZolin 2gm/dext,iso 50mL 50 ML IV SCH (20:46)
[2025-10-15 22:00] VITALS: BP 154/71; PULSE 103; RESP 17; TEMP 96.6; O2SAT 93
[2025-10-16 06:00] VITALS: BP 131/76; PULSE 88; RESP 16; TEMP 96.6; O2SAT 96
[2025-10-16 08:06] VITALS: BP_SYST 129; BP_SYST 131; BP_SYST 149; BP_DIAS 56; BP_DIAS 77; BP_DIAS 81; PULSE 108; PULSE 90; PULSE 97; RESP 16; O2SAT 96
[2025-10-16 08:19] LABS: INR 1.6 INR
[2025-10-16 08:31] LABS: CREATININE 3.09 MG/DL (0.40-0.90); TOTAL CARBON DIOXIDE 27.9 MMOL/L (24-32); eCRCL 13 ML/MIN; eGFR 15 ML/MIN
[2025-10-16 10:00] VITALS: BP 129/56; PULSE 98; RESP 20; TEMP 97; O2SAT 96
--- NOTE | 2025-10-16 10:12 | PROGRESS NOTE ---
Progress Note Dictate Providers to CC ~ Central Line/PICC still needed: No [place] Indications Met/Not Met: F/C Indications Not Met Antibiotic Ordered?: N/A Subjective Subjective the patient is feeling better with the continued urine output and the negative fluid balance. I have cutback the lasix now. creatinine continues to get better, down to 3.0 Objective Vitals Vital Signs Date Time Temp Pulse Resp B/P (MAP) Pulse Ox O2 Delivery O2 Flow Rate FiO2 10/16/25 14:38 16 10/16/25 10:00 97.0 98 129/56 (80) 96 Room Air 10/15/25 20:00 0.0 Lab Results: 10/15/25 0634 10/16/25 0754 Objective Vital Signs: As above General: obese body habitus, no acute distress. Skin: No rashes, lumps, ulcers, blisters, purpura or petechiae HEENT: Anicteric Neck: Supple and nontender without enlargement of the thyroid, or lymphadenopathy. Chest: Normal size and shape, no tenderness, CTA bilaterally Heart: Regular. No jugular venous distention, S1 and S2 heard , no gallop Abdomen: Soft and non tender no organomegaly,BS+ Extremities: = pedal edema Neuro: Nonfocal. Coagulation Studies Laboratory Tests Test 10/16/25 07:53 Prothrombin Time 15.3 SECONDS (9.0-12.0) H INR International Normalized Ratio 1.6 INR Coagulation Comments Advance Care Planning Advanced Care plannin - 30 Minutes Problem\Assessment\Plan Problems/Diagnosis: (1) Acute kidney injury Assessment & Plan: weeping edema of the legs better. will continue lasix today. but change to PO. no iv fluids. creaitnine is down to 3.0 (2) Pulmonary emboli Assessment & Plan: from 2022. She nancy Warfarin. defer decision to primary about this. Her iNR was very high, greater than 8. hence it iwas on hold. now it is 1.7. restarted warfarin yesterday (3) COPD (chronic obstructive pulmonary disease) Assessment & Plan: heavy smoking history until 2023 and she is getting breathing treatments. SURENDRA UNDERWOOD MD Oct 16, 2025 10:12
[2025-10-16 14:38] VITALS: RESP 16
--- NOTE | 2025-10-16 15:11 | DISCHARGE SUMMARY ---
Discharge Summary Providers to CC ~ Discharge Summary Admission Diagnosis: ALEXSANDER, LLE CELLULITIS Hospital Course DATE OF ADMISSION: October 10, 2025 DATE OF DISCHARGE: October 16, 2025 Discharge Diagnosis\Comment: Acute kidney injury on top of chronic kidney disease stage 4 possibly related to renal tubular stasis Bilateral lower extremity cellulitis History of paroxysmal atrial fibrillation History of DVT Dyslipidemia High blood pressure History of hypothyroidism Morbid obesity with a BMI of 42 Operations\Procedures: Non Consultants: Nephrology Dr. Wilkerson Complications: None Condition on DC: Stable for transfer Discharge Summary: This is a 80 years old female was transferred to our facility from [facility] [place] for generalized weakness and acute kidney injury requiring nephrology evaluation; she was treated outpatient for leg cellulitis with Bactrim; patient was admitted to the hospital and seen by Nephrology; patient received IV fluids and then she was switched to IV Lasix; CT of the lower extremity showed generalized bilateral lower extremity cellulitis; renal ultrasound showed no evidence of hydronephrosis with mild diffuse bilateral renal cortical atrophy; echocardiogram that was performed in May of this year showing mild concentric left ventricular hypertrophy with an EF of 65% and mildly dilated right ventric le with an PA pressure of 60; patient's creatinine slowly improved during her stay and today patient in stable condition is transferred to rehab; is to follow up with Dr. Wilkerson in his office and to have weekly BMP checked Patient is transferred with Lasix 40 mg p.o. daily Coumadin 3 mg p.o. daily Augmentin 875 mg one tablet p.o. b.i.d. for seven days, ropinirole 0.5 mg p.o. q.h.s. levothyroxine 50 mcg p.o. daily On October 15 white count was 9.4 H&H 12.6/38 with 222 platelets; today sodium 140 potassium 5.1 CO2 28 BUN 52 and creatinine 3.1, BNP was yesterday 3865 Physical examination temperature 97 heart rate 98 breathing 20 blood pressure 129/56 96% on room air HEENT normal oral mucosa no JVD lungs with decreased bilateral entry no crackles no wheezing heart normal rate and rhythm S1-S2 no murmurs abdomen is soft obese nontender bowel sounds are present extremities trace edema plus two pulses she is awake and alert Patient will be followed by the physician at the facility where she is transferred *Problems/Diagnosis: (1) Acute kidney injury Status: Acute (2) Pulmonary emboli (3) COPD (chronic obstructive pulmonary disease) Total Time Spent on D/C: > 30 Minutes Date of Service: Oct 16, 2025 Billing Provider: LILLIAN STERN MD Common Visit Codes: [id number] DISCH DAY >30min LILLIAN STERN MD Oct 16, 2025 15:10
[2025-10-16] MEDS ORDERED: warfarin 3mg tablet PO ONE (21:00)
== END 2025-10-16 16:35 | DRG 682 ==
LOC: ER 21:08 → ED HOLD 22:51 → EDBEDREQ 10-11 03:13 → ORTHO 4S 10-11 04:22
PROVIDERS: ADMIT Internal Medicine; ATTEND Family Medicine
DX: N17.0 Acute kidney failure with tubular necrosis (principal); I26.99 Other pulmonary embolism without acute cor pulmonale; Z66 Do not resuscitate; L03.115 Cellulitis of right lower limb; E03.9 Hypothyroidism, unspecified; G25.81 Restless legs syndrome; I48.0 Paroxysmal atrial fibrillation; L03.116 Cellulitis of left lower limb; Z79.01 Long term (current) use of anticoagulants; E66.01 Morbid (severe) obesity due to excess calories; N18.4 Chronic kidney disease, stage 4 (severe); J43.9 Emphysema, unspecified; I12.9 Hypertensive chronic kidney disease with stage 1 through stage 4 chronic kidney disease, or unspecified chronic kidney disease; Z68.41 Body mass index [BMI] 40.0-44.9, adult; E78.5 Hyperlipidemia, unspecified; Z96.643 Presence of artificial hip joint, bilateral; E87.5 Hyperkalemia; E87.70 Fluid overload, unspecified; Z82.49 Family history of ischemic heart disease and other diseases of the circulatory system; Z83.3 Family history of diabetes mellitus; Z86.711 Personal history of pulmonary embolism; Z86.718 Personal history of other venous thrombosis and embolism; Z87.891 Personal history of nicotine dependence; Z90.710 Acquired absence of both cervix and uterus; Z79.899 Other long term (current) drug therapy
CPT/HCPCS: 36415; 36600; 71045; 73700; 76770; 80048; 80053; 81003; 82570; 82803; 83605; 83735; 83880; 83935; 84100; 84133; 84145; 84156; 84300; 84439; 84443; 84480; 85018; 85025; 85610; 87040; 87081; 87207; 93005; 97110; 97116; 97162; 97530; 99285; A4314; A6154; A6250; A6258; G0378; J0690; J0696; J1171; J1938; J3430; J3490; J7030; J7070; J7120